=== PATIENT | female | born 1960 | race African-American/Black ===

== ENCOUNTER 2018-03-02 19:22 | Emergency (ER) | payer MEDICARE, OTHER ==
[2018-03-02 19:44] LABS: ADD MAN DIFF? NO
[2018-03-02] MEDS: ASPIRIN CHEWABLE 81 MG TABLET. PO (19:46)
[2018-03-02 19:49] LABS: BASO % 1 % (0-3); EOS # 0.2 x10^3/uL (0.0-0.7); EOS % 2 % (0-3); HEMATOCRIT 33.7 % (36.0-47.0); LYMPH # 2.4 x10^3/uL (1.0-4.8); LYMPH % 35 % (24-48); MEAN CORPUSCULAR HEMOGLOBIN 26 pg (25-35); MEAN CORPUSCULAR HGB CONC 33 g/dL (31-37); MEAN CORPUSCULAR VOLUME 80 fL (79-100); MONO # 0.7 x10^3/uL (0.0-1.1); MONO % 10 % (0-9); NEUT # 3.5 x10^3uL (1.8-7.7); NEUT % 52 % (31-73); PLATELET COUNT 210 x10^3/uL (140-400); RED BLOOD COUNT 4.21 x10^6/uL (3.50-5.40); RED CELL DISTRIBUTION WIDTH 15.2 % (11.5-14.5); WHITE BLOOD COUNT 6.7 x10^3/uL (4.0-11.0)
[2018-03-02 20:00] LABS: ANION GAP 8 (6-14); BLOOD UREA NITROGEN 24 mg/dL (7-20); BUN/CREATININE RATIO 22 (6-20); CALCIUM 7.3 mg/dL (8.5-10.1); CARBON DIOXIDE 29 mmol/L (21-32); CHLORIDE 104 mmol/L (98-107); CREATININE 1.1 mg/dL (0.6-1.0); GFR 62.2; GLUCOSE 97 mg/dL (70-99); POTASSIUM 4.3 mmol/L (3.5-5.1); SODIUM 141 mmol/L (136-145)
[2018-03-02 20:06] LABS: ALBUMIN/GLOBULIN RATIO 0.5 (1.0-1.7); ALK PHOS 82 U/L (46-116); ALT (SGPT) 15 U/L (14-59); AST (SGOT) 16 U/L (15-37); MAGNESIUM 2.2 mg/dL (1.8-2.4); TOTAL BILIRUBIN 0.2 mg/dL (0.2-1.0); TOTAL PROTEIN 8.6 g/dL (6.4-8.2)
[2018-03-02 20:07] LABS: TROPONINI < 0.017 ng/mL (0.000-0.055)
[2018-03-02 20:14] LABS: NT-PRO BNP 91 pg/mL (0-124)
[2018-03-02 20:14] LABS: CKMB INDEX 0.4 % (0-4); CKMB MASS 0.5 ng/mL (0.0-3.6); CREATINE KINASE 114 U/L (26-192)
[2018-03-02] MEDS: NITROGLYCERIN SUBLINGUAL 0.4 MG BOTTLE OF 25. SL (20:28)
[2018-03-02] MEDS: ACETAMINOPHEN 325 MG TABLET. PO (21:24)
[2018-03-02] MEDS ORDERED: ONDANSETRON PF 4 MG/2 ML VIAL. (22:05)
[2018-03-02 22:47] LABS: TROPONINI < 0.017 ng/mL (0.000-0.055)
== END 2018-03-02 23:23 | disposition home or self-care (01) ==
LOC: ER 19:22
DX: R07.89 Other chest pain (principal); R42 Dizziness and giddiness; E03.9 Hypothyroidism, unspecified; I10 Essential (primary) hypertension; M10.9 Gout, unspecified; Z79.82 Long term (current) use of aspirin; Z88.2 Allergy status to sulfonamides
CPT/HCPCS: 36415; 71045; 80053; 82553; 83735; 83880; 84484; 85025; 93005; 99285-25

== ENCOUNTER 2018-03-13 20:03 | Emergency (ER) | payer MEDICARE ==
[2018-03-13 20:32] LABS: ADD MAN DIFF? NO; BASO # 0.1 x10^3/uL (0.0-0.2); BASO % 1 % (0-3); EOS # 0.1 x10^3/uL (0.0-0.7); EOS % 1 % (0-3); HEMATOCRIT 32.7 % (36.0-47.0); HEMOGLOBIN 10.9 g/dL (12.0-15.5); LYMPH # 2.2 x10^3/uL (1.0-4.8); LYMPH % 30 % (24-48); MEAN CORPUSCULAR HEMOGLOBIN 27 pg (25-35); MEAN CORPUSCULAR HGB CONC 33 g/dL (31-37); MEAN CORPUSCULAR VOLUME 80 fL (79-100); MONO # 0.7 x10^3/uL (0.0-1.1); MONO % 10 % (0-9); NEUT # 4.3 x10^3uL (1.8-7.7); NEUT % 58 % (31-73); PLATELET COUNT 197 x10^3/uL (140-400); RED CELL DISTRIBUTION WIDTH 15.3 % (11.5-14.5); WHITE BLOOD COUNT 7.5 x10^3/uL (4.0-11.0)
[2018-03-13 20:48] LABS: ANION GAP 11 (6-14); BLOOD UREA NITROGEN 27 mg/dL (7-20); BUN/CREATININE RATIO 25 (6-20); CALCIUM 6.9 mg/dL (8.5-10.1); CARBON DIOXIDE 29 mmol/L (21-32); CHLORIDE 102 mmol/L (98-107); CREATININE 1.1 mg/dL (0.6-1.0); GFR 62.2; GLUCOSE 87 mg/dL (70-99); POTASSIUM 4.1 mmol/L (3.5-5.1); SODIUM 142 mmol/L (136-145)
[2018-03-13] MEDS: KETOROLAC 15 MG/ML VIAL. IV (20:49)
[2018-03-13] MEDS: PROCHLORPERAZINE 10 MG/2 ML VIAL. IV (20:49)
[2018-03-13 20:50] LABS: PROTHROMBIN TIME PATIENT 13.1 SEC (11.7-14.0)
[2018-03-13 20:54] LABS: ALBUMIN/GLOBULIN RATIO 0.5 (1.0-1.7); ALK PHOS 77 U/L (46-116); ALT (SGPT) 18 U/L (14-59); AST (SGOT) 20 U/L (15-37); MAGNESIUM 2.2 mg/dL (1.8-2.4); TOTAL BILIRUBIN 0.2 mg/dL (0.2-1.0); TOTAL PROTEIN 8.5 g/dL (6.4-8.2)
[2018-03-13 20:58] LABS: TROPONINI < 0.017 ng/mL (0.000-0.055)
[2018-03-13 20:59] LABS: NT-PRO BNP 160 pg/mL (0-124)
[2018-03-13 21:04] LABS: BILIRUBIN,URINE NEGATIVE (NEG); CLARITY,URINE CLEAR; COLOR,URINE YELLOW; GLUCOSE,URINE NEGATIVE (NEG); NITRITE,URINE NEGATIVE (NEG); PROTEIN,URINE NEGATIVE (NEG-TRACE); UROBILINOGEN,URINE 0.2 mg/dL (0.2 mg/dL)
[2018-03-13] MEDS ORDERED: diphenhydrAMINE 50 MG/ML VIAL (21:08)
[2018-03-13 21:09] LABS: BACTERIA,URINE MODERATE /HPF (0-FEW); RBC,URINE 0 /HPF (0-2); SQUAMOUS EPITHELIAL CELL,UR MOD /LPF
[2018-03-13] MEDS: diphenhydrAMINE 50 MG/ML VIAL IVP (21:12)
== END 2018-03-13 21:40 | disposition home or self-care (01) ==
LOC: ER 20:03
DX: R07.89 Other chest pain (principal); R51 Headache; R53.83 Other fatigue; E03.9 Hypothyroidism, unspecified; I10 Essential (primary) hypertension; M10.9 Gout, unspecified; Z90.710 Acquired absence of both cervix and uterus; Z90.49 Acquired absence of other specified parts of digestive tract; Z88.2 Allergy status to sulfonamides; Z88.8 Allergy status to other drugs, medicaments and biological substances
CPT/HCPCS: 36415; 70450; 71045; 80053; 81001; 83735; 83880; 84484; 85025; 85610; 87086; 93005; 96374; 96375; 99285-25; J0780; J1200; J1885

== ENCOUNTER 2019-04-16 09:06 | Emergency (ER) | payer MEDICARE, MEDICAID ==
[~2019-04-16] VITALS: Ht 172.7 cm; Wt 136.1 kg
[~2019-04-16 09:06] MED LIST: METR-34 PO
[2019-04-16 09:46] VITALS: BP 150/87
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
[2019-04-16] MEDS ORDERED: ACETAMINOPHEN 500 MG TABLET PO ONE (10:15)
== END 2019-04-16 10:14 | disposition left against medical advice (07) ==
LOC: ER 09:06
DX: S69.90XA Unspecified injury of unspecified wrist, hand and finger(s), initial encounter (principal); R22.32 Localized swelling, mass and lump, left upper limb; I10 Essential (primary) hypertension; E03.9 Hypothyroidism, unspecified; Z88.2 Allergy status to sulfonamides; Z88.8 Allergy status to other drugs, medicaments and biological substances; Y08.89XA Assault by other specified means, initial encounter; Y93.89 Activity, other specified; Y92.89 Other specified places as the place of occurrence of the external cause; Y99.8 Other external cause status
CPT/HCPCS: 99281

== ENCOUNTER 2021-11-30 13:22 | Emergency (ER) | payer BC, MEDICARE ==
[~2021-11-30] VITALS: Ht 172.7 cm; Wt 158.1 kg
[2021-11-30 13:25] VITALS: BP 143/83
--- NOTE | 2021-11-30 14:37 | ED.ADGEN ---
Past Medical History Past Medical History: Hypertension, Hyperthyroid Additional Past Medical Histor: low Ca+ Past Surgical History: Cholecystectomy, Hysterectomy, Other Additional Past Surgical Histo: removal of parathyroid, goiter removed Smoking Status: Never Smoker Alcohol Use: None Drug Use: None General Adult EDM: Chief Complaint: MECHANICAL FALL HPI: HPI: Patient is a 61-year-old female who arrives ambulatory to the emergency department complaining of injuries suffered from a fall. Patient reportedly was entering convenience store when she tripped over a rug. Patient states she landed on her right knee and broke her fall with her right hand. Patient states now she has considerable pain with any movement of her right knee as well as her right hand (which is her dominant hand). Patient also reports to some stiffening of her low back since this occurred as well. Despite this she denies any saddle anesthesia, change in bowel/bladder habits or abdominal pain. Additionally she denies any prodromal symptoms states she did not hit her head or lose consciousness. She is awake, alert and nontoxic-appearing. Review of Systems: Review of Systems: Constitutional: Denies fever or chills. [] Eyes: Denies change in visual acuity. [] HENT: Denies nasal congestion or sore throat. [] Respiratory: Denies cough or shortness of breath. [] Cardiovascular: Denies chest pain or edema. [] GI: Denies abdominal pain, nausea, vomiting, bloody stools or diarrhea. [] : Denies dysuria. [] Musculoskeletal: Reports extremity pain, right knee pain as well as lumbar back pain. [] Integument: Denies rash. [] Neurologic: Denies headache, focal weakness or sensory changes. [] Endocrine: Denies polyuria or polydipsia. [] Lymphatic: Denies swollen glands. [] Psychiatric: Denies depression or anxiety. [] Allergies: Allergies: Allergies Coded Allergies Type Severity Reaction Last Updated Verified Sulfa (Sulfonamide Antibiotics) Allergy Intermediate 11/30/21 No prochlorperazine Allergy Intermediate 11/30/21 Yes Physical Exam: PE: Constitutional: Well developed, well nourished, no acute distress, non-toxic a ppearance. [] HENT: Normocephalic, atraumatic, bilateral external ears normal, oropharynx moist, no oral exudates, nose normal. [] Eyes: PERRLA, EOMI, conjunctiva normal, no discharge. [] Neck: Normal range of motion, no tenderness, supple, no stridor. [] Cardiovascular:Heart rate regular rhythm, no murmur [] Lungs & Thorax: Bilateral breath sounds clear to auscultation [] Abdomen: Bowel sounds normal, soft, no tenderness, no masses, no pulsatile masses. [] Skin: Warm, dry, no erythema, no rash. [] Back: Patient has paraspinal tenderness palpation of the lumbosacral musculature. There is no midline tenderness present. There are no external signs of trauma present. No CVA tenderness. [] Extremities: Patient has tenderness palpation of the right knee. This is exacerbated with motion. There are no external signs of trauma however nor is there swelling present. Patient also has tenderness to palpation of the right hand. Patient has specific tenderness to the medial aspect at the dorsum without deformity or external sign of trauma present. No cyanosis, no clubbing, ROM intact, no edema. [] Neurologic: Alert and oriented X 3, normal motor function, normal sensory function, no focal deficits noted. [] Psychologic: Affect normal, judgement normal, mood normal. [] Current Patient Data: Vital Signs: Vital Signs Date Time Temp Pulse Resp B/P (MAP) Pulse Ox O2 Delivery O2 Flow Rate FiO2 11/30/21 13:25 97.8 87 16 143/83 (103) 98 Room Air 97.8 EKG: EKG: [] Heart Score: C/O Chest Pain: No Risk Factors: Risk Factors: DM, Current or recent (<one month) smoker, HTN, HLP, family history of CAD, obesity. Risk Scores: Score 0 - 3: 2.5% MACE over next 6 weeks - Discharge Home Score 4 - 6: 20.3% MACE over next 6 weeks - Admit for Clinical Observation Score 7 - 10: 72.7% MACE over next 6 weeks - Early Invasive Strategies Radiology/Procedures: Radiology/Procedures: [][facility] [address] [place] [address] IMAGING REPORT Signed PATIENT: GLENNA CERNA ACCOUNT: [id number] : 1960 LOCATION: ER AGE: 61 SEX: F EXAM STATUS: REG ER ORD. PHYSICIAN: CHIQUITA QUEEN DO REASON: fall, rt knee pain PROCEDURE: KNEE RIGHT 3V XR KNEE 3 VIEWS_RT DATE: 11/30/2021 2:35 PM INDICATION: fall, rt knee pain COMPARISON: None. FINDINGS: Bones: There is no evidence of acute fracture or dislocation. Joints: Moderate to severe degenerative changes of the medial compartment, mild lateral and patellofemoral compartment degenerative changes. There is no joint effusion. Miscellaneous: None. IMPRESSION: No evidence of acute fracture. Electronically signed by: Gary Kapadia MD (11/30/2021 3:00 PM) [id number] DICTATED and SIGNED BY: GARY KAPADIA MD DATE: 11/30/21 [id number] [facility] [address] [place] [address] IMAGING REPORT Signed PATIENT: GLENNA CERNA ACCOUNT: [id number] : 1960 LOCATION: ER AGE: 61 SEX: F EXAM STATUS: REG ER ORD. PHYSICIAN: CHIQUITA QUEEN DO REASON: fall, rt hand pain PROCEDURE: HAND RIGHT 3V XR HAND_RIGHT 3 VIEWS DATE: 11/30/2021 2:35 PM INDICATION: Reason: fall, rt hand pain / Spl. Instructions: / History: COMPARISON: None. FINDINGS: Bones: There is no evidence of acute fracture or dislocation. Joints: The joint spaces are normal. Miscellaneous: None. IMPRESSION: No evidence of acute fracture. Electronically signed by: Gary Kapadia MD (11/30/2021 3:04 PM) [id number] DICTATED and SIGNED BY: GARY KAPADIA MD DATE: 11/30/21 [id number] 0 Course & Med Decision Making: Course & Med Decision Making Pertinent Labs and Imaging studies reviewed. (See chart for details) [] Dragon Disclaimer: Dragon Disclaimer: This electronic medical record was generated, in whole or in part, using a voice recognition dictation system. Departure Departure Impression: Primary Impression: Contusion of right hand Additional Impressions: Contusion of right knee, initial encounter Lumbar strain Disposition: HOME / SELF CARE / HOMELESS Condition: STABLE Referrals: UNKNOWN PCP NAME (PCP) Patient Instructions: Contusion, Fall Prevention and Home Safety, Hand Contusion Scripts Tramadol Hcl (ULTRAM) 50 Mg Tablet 50 MG PO Q6HRS PRN for PAIN for 3 Days, #12 TAB 0 Refills Prov: CHIQUITA QUEEN DO 11/30/21 Cyclobenzaprine Hcl (CYCLOBENZAPRINE HCL) 5 Mg Tablet 1 TAB PO TID for 5 Days, #15 TAB Prov: CHIQUITA QEUEN DO 11/30/21 Problem Qualifiers CHIQUITA QUEEN DO Nov 30, 2021 14:37
--- NOTE | 2021-11-30 15:02 | RAD ---
XR KNEE 3 VIEWS_RT DATE: 11/30/2021 2:35 PM INDICATION: fall, rt knee pain COMPARISON: None. FINDINGS: Bones: There is no evidence of acute fracture or dislocation. Joints: Moderate to severe degenerative changes of the medial compartment, mild lateral and patellof emoral compartment degenerative changes. There is no joint effusion. Miscellaneous: None. IMPRESSION: No evidence of acute fracture. Electronically signed by: Gary Kapadia MD (11/30/2021 3:00 PM) [id number]
--- NOTE | 2021-11-30 15:07 | RAD ---
XR HAND_RIGHT 3 VIEWS DATE: 11/30/2021 2:35 PM INDICATION: Reason: fall, rt hand pain / Spl. Instructions: / History: COMPARISON: None. FINDINGS: Bones: There is no evidence of acute fracture or dislocation. Joints: The joint spaces are normal. Miscellaneous: None. IMPRESSION: No evidence of acute fracture. Electronically signed by: Gary Kapadia MD (11/30/2021 3:04 PM) [id number]
[2021-11-30] MEDS ORDERED: CYCL5TAB PO (15:15)
[2021-11-30] MEDS ORDERED: TRAM-48 PO (15:15)
== END 2021-11-30 15:20 | disposition home or self-care (01) ==
LOC: ER 13:22
DX: S39.012A Strain of muscle, fascia and tendon of lower back, initial encounter (principal); S60.221A Contusion of right hand, initial encounter; S80.01XA Contusion of right knee, initial encounter; I10 Essential (primary) hypertension; Z90.49 Acquired absence of other specified parts of digestive tract; W18.09XA Striking against other object with subsequent fall, initial encounter; Z90.710 Acquired absence of both cervix and uterus; Y93.89 Activity, other specified; Y92.89 Other specified places as the place of occurrence of the external cause; Y99.8 Other external cause status
CPT/HCPCS: 73130; 73562; 99284